=== PATIENT | female | born 1945 | race African-American/Black ===

== ENCOUNTER 2023-09-04 14:22 | Emergency (ER) | payer MEDICARE ==
[2023-09-04] MEDS ORDERED: Lidocaine 1% PF 5 ML VIAL ONE (14:42)
[2023-09-04] MEDS ORDERED: Cephalexin 250 MG CAP ONE (15:40)
== END 2023-09-04 15:48 | disposition home or self-care (01) ==
LOC: BURERS 14:22
DX: L02.611 Cutaneous abscess of right foot (principal); L03.031 Cellulitis of right toe; I11.0 Hypertensive heart disease with heart failure; I50.9 Heart failure, unspecified; J45.909 Unspecified asthma, uncomplicated; Z79.899 Other long term (current) drug therapy
CPT/HCPCS: 10060